=== PATIENT | male | born 1990 ===

== ENCOUNTER 2024-03-06 14:46 | Emergency (ER) | payer OTHER ==
[~2024-03-06] VITALS: Ht 167.6 cm; Wt 77.1 kg
[2024-03-06] MEDS: ONDANSETRON 4MG ODT PO ONE (17:00)
[2024-03-06] MEDS: ACETAMINOPHEN 325MG TABLET PO ONE (17:00)
[2024-03-06 17:01] VITALS: O2SAT 98
[2024-03-06 17:06] LABS: CHLORIDE 102 mEq/L (98-107); POTASSIUM 3.8 mEq/L (3.5-5.1); SODIUM 138 mEq/L (136-145)
[2024-03-06 17:07] LABS: CALCIUM 9.4 mg/dL (8.7-10.4); CARBON DIOXIDE 25 mEq/L (21-32)
[2024-03-06 17:10] LABS: HEMATOCRIT. 46.1 % (42.0-52.0); HEMOGLOBIN. 15.4 g/dL (14.0-18.0); MEAN CORPUSCULAR HEMOGLOBIN 29.7 pg (28.0-32.0); MEAN CORPUSCULAR HGB CONC 33.5 g/dL (31.0-37.0); MEAN CORPUSCULAR VOLUME 88.5 fL (80.0-94.0); MEAN PLATELET VOLUME 9.2 fl (7.4-10.4); PLATELET 203 x1000/uL (130-400); RED CELL DISTRIBUTION WIDTH 13.2 % (11.6-14.6)
[2024-03-06 17:12] LABS: GLUCOSE 116 mg/dL (70-105); UREA NITROGEN BLOOD 14 mg/dL (9-23)
[2024-03-06 17:16] LABS: DIFFERENTIAL COMMENT 1
[2024-03-06] MEDS: SODIUM CHLORIDE 0.9% 1,000 ML IV ONE (18:00)
[2024-03-06 20:11] LABS: PLATELET ESTIMATE NORMAL
[2024-03-06] MEDS: KETOROLAC 15MG/ML VIAL IV ONE (20:30)
[2024-03-06 22:30] LABS: TROPONIN I HIGH SENSITIVITY 4 ng/L (3.0-53)
[2024-03-06] MEDS ORDERED: LOPE2CAP MT (23:53)
[2024-03-06] MEDS ORDERED: ONDA-239 PO (23:53)
[2024-03-06] MEDS ORDERED: TOPUD PO (23:53)
[2024-03-06] MEDS ORDERED: CIPR500T5 MT (23:54)
[2024-03-07 00:17] VITALS: BP 123/79; PULSE 110; RESP 20; TEMP 37.66968; O2SAT 98
== END 2024-03-07 00:18 | disposition home or self-care (01) ==
LOC: ER 14:46
DX: R11.2 Nausea with vomiting, unspecified (principal); R42 Dizziness and giddiness; Z20.822 Contact with and (suspected) exposure to COVID-19
CPT/HCPCS: 99285; 96374; 71045; 96361; 80048; 85025; 84484; 36415; 93005; 87426; 87804 ×2; Q0162; J1885; J7030